=== PATIENT | female | born 1975 | race Two or more races ===

== ENCOUNTER → 2024-02-04 | Outpatient (CLI) | payer MEDICAID, SELFPAY ==
--- NOTE | 2024-02-04 08:30 | XR_ITS ---
Examination: Screening digital mammography, bilateral Computer aided detection 3-D breast Tomosynthesis, bilateral Date and time of exam: February 04, 2024 0841 hours Comparison May 21, 2020 February 05, 2022 Indication: Screening Technique: Nonmagnified MLO, CC views of the breasts to been obtained, reconstructed from 3-D Tomosynthesis images. R2 computer aided detection program utilized for evaluation of suspicious masses and/or abnormal calcifications. 3-D Tomosynthesis images obtained. Findings: The breasts are heterogeneously dense, which may obscure small masses 5 mm focal asymmetry nipple level left breast MLO view, 8 cm from the nipple, slightly inner left breast on the CC view Benign calcifications Impression: BI-RADS Category 0: Incomplete: Need additional imaging evaluation 5 mm nodule left breast as above, recommend follow-up spot tomographic views of this nodule as well as left breast sonography to complete the workup
== END | disposition home or self-care (01) ==
PROVIDERS: Referring Provider Obstetrics & Gynecology; Visit Provider Obstetrics & Gynecology
DX: Z12.31 Encounter for screening mammogram for malignant neoplasm of breast (principal); R92.8 Other abnormal and inconclusive findings on diagnostic imaging of breast; N63.20 Unspecified lump in the left breast, unspecified quadrant
CPT/HCPCS: 77063; 77067

== ENCOUNTER → 2024-03-28 | Outpatient (CLI) | payer MEDICAID, SELFPAY ==
--- NOTE | 2024-03-28 09:30 | XR_ITS ---
Examination: Breast ultrasound, unilateral, left Date and time of exam: March 28, 2024 1015 hours INDICATIONS: Mammogram February 04, 2024 5 mm focal asymmetry nipple level left breast MLO view, 8 cm from the nipple Technique: Real-time holcomb scale ultrasonographic imaging performed left breast including all 4 quadrants as well as nipple retroareolar and axillary region. Findings: No cystic or solid mass IMPRESSION: BI-RADS Category 1: Negative study
--- NOTE | 2024-03-28 10:00 | XR_ITS ---
Examination: Diagnostic digital mammography, unilateral, left Computer aided detection 3-D breast Tomosynthesis, unilateral Date and time of exam: March 28, 2024 1032 hours INDICATIONS: Mammogram February 04, 2024 5 mm nodule nipple level left breast MLO view Technique: Nonmagnified MLO, CC views of the left breast have been obtained, reconstructed from 3-D Tomosynthesis images. R2 computer aided detection program utilized for evaluation of suspicious masses and/or abnormal calcifications. 3-D Tomosynthesis images obtained. Findings: The breast is heterogeneously dense, which may obscure small masses Nodule left breast remains posterior depth nipple level MLO view spot compression examination Impression: BI-RADS category 3: Probably benign findings One additional 6 month left mammogram follow-up is needed to document stability of focal asymmetry nipple level left breast on the MLO view, posterior depth
== END | disposition home or self-care (01) ==
LOC: CDIM 09:46
PROVIDERS: PCP Family Medicine; Referring Provider Obstetrics & Gynecology; Visit Provider Obstetrics & Gynecology
DX: R92.332 Mammographic heterogeneous density, left breast (principal); N64.89 Other specified disorders of breast
CPT/HCPCS: 76641; 77061; 77065; G0279

== ENCOUNTER 2024-07-11 12:42 | Emergency (ER) | payer MEDICAID, SELFPAY ==
[2024-07-11 12:44] VITALS: BMI 28.6
[2024-07-11 12:57] VITALS: BP 117/74; PULSE 76; RESP 18; TEMP 36.9; O2SAT 98; BMI 29.5
--- NOTE | 2024-07-11 13:03 | XR_ITS ---
Examination: Pelvic ultrasound, transabdominal, complete Technique: Transabdominal ultrasound of the pelvis performed using grayscale imaging Date and time of exam: July 11, 2024 1358 hours INDICATIONS: Vaginal bleeding and pelvic pain beginning 5 days ago FINDINGS: Uterus 8.5 cm endometrial stripe 0.6 cm Right ovary 3.3 cm arterial flow Left ovary obscured by bowel gas IMPRESSION: No uterine mass or intrauterine gestation
--- NOTE | 2024-07-11 13:03 | EDRME_ITS ---
Rapid Medical Screening Exam REPLACED BY [facility] Arrival date/time: 07/11/24 12:42 48-year-old female with no known medical history presents to the emergency room with a chief complaint of vaginal bleeding x 2 days. Patient states she no longer has her menses and was told she was already in menopause. The patient has not had a menses in the last 4 years and began to have vaginal bleeding the last 2 days. I have greeted and performed a focused initial assessment of this patient. A comprehensive ED assessment and evaluation of the patient, analysis of all test results, and completion of the medical decision making process will be conducted by additional ED providers. Chief Complaint: Abdominal Pain Vital signs: Vital Signs Temperature 98.4 F 07/11/24 12:57 Pulse Rate 76 07/11/24 12:57 Respiratory Rate 18 07/11/24 12:57 Blood Pressure 117/74 07/11/24 12:57 Pulse Oximetry (%) 98 07/11/24 12:57 Oxygen Delivery Method Room Air 07/11/24 12:57 Vital signs reviewed by provider: Yes
[2024-07-11 13:45] LABS: Basophils # (Auto) 0.1 Thou/mm3 (0.0-0.2); Basophils % (Auto) 1 % (0-2.5); Eosinophils # (Auto) 0.1 Thou/mm3 (0.0-0.5); Eosinophils % (Auto) 1 % (0-10); Hematocrit 41.3 % (36.0-46.0); Hemoglobin 14.2 g/dL (12.0-16.0); Immature Granulocytes % (Auto) 0 % (0-0); Immature Granulocytes Auto 0.03 Thou/mm3 (0.00-0.00); Lymphocytes # (Auto) 2.3 Thou/mm3 (1.0-4.8); Lymphocytes % (Auto) 28 % (10-50); Mean Corpuscular HGB Conc 34.4 g/dl (31.0-37.0); Mean Corpuscular Hemoglobin 30.6 pg (25.0-35.0); Mean Corpuscular Volume 89 fL (80-100); Monocytes # (Auto) 0.8 Thou/mm3 (0.0-0.8); Monocytes % (Auto) 9 % (0-12); Neutrophils # (Auto) 4.9 Thou/mm3 (1.8-7.7); Neutrophils % (Auto) 61 % (37-80); Nucleated Red Blood Cell % 0 /100 WBC (0); Platelet Count 223 Thou/mm3 (140-440); RDW Standard Deviation 49.3 fL (36.4-46.3); Red Blood Count 4.64 Miln/mm3 (4.00-5.20)
[2024-07-11 13:59] LABS: Partial Thromboplastin Time 23.7 Seconds (22.0-36.0); Prothrombin Time 10.7 Seconds (9.0-12.2)
[2024-07-11 14:04] LABS: Alanine Aminotransferase 22 U/L (10-49); Albumin, Serum 4.5 gm/dL (3.5-5.0); Albumin/Globulin Ratio 1.7 (1.2-2.2); Alkaline Phosphatase 93 U/L (46-116); Anion Gap 10 (7-16); Aspartate Amino Transferase 14 U/L (0-34); BUN/Creatinine Ratio 12 Ratio (12-20); Bilirubin,Total 0.7 mg/dL (0.3-1.2); Blood Urea Nitrogen 11 mg/dL (9-23); Calcium 9.2 mg/dL (8.3-10.6); Calcium (Corrected) 9.2 mg/dL (8.5-10.1); Carbon Dioxide 25.2 mMol/L (20.0-31.0); Chloride 106 mMol/L (98-107); Creatinine (Component) 0.9 mg/dL (0.6-1.3); Estimated Creatinine Clearance 64.7 mL/min (>60); Globulin 2.7 gm/dL (2.3-3.5); Glucose 153 mg/dL (74-106); Osmolality,Calculated 283 (275-295); Potassium 3.4 mMol/L (3.4-5.1); Sodium 141 mMol/L (136-145); Total Protein 7.2 gm/dL (5.7-8.2); eGFR > 60 See Note
[2024-07-11 17:06] VITALS: BP 133/81; PULSE 72; RESP 16; TEMP 36.5; O2SAT 100
--- NOTE | 2024-07-11 20:18 | EDNOTE_ITS ---
ED OB Contraction Preg RMI/HPI General Chief complaint: Abdominal Pain Stated complaint: LOWER ABD PAIN X2WKS; PT CURRENT ON PERIOD Time Seen by Provider: 07/11/24 20:07 Source: patient, RN notes reviewed and old records reviewed Arrival date/time: 07/11/24 12:42 Mode of arrival: ambulatory Limitations: no limitations RME / HPI RME / HPI Narrative: 48yof presents to ED for 3-day history of vaginal bleeding and pelvic pain. Patient states last menstrual cycle was 2 years ago. Denies OCP or hormone therapy use. No fever, nausea/vomiting, dysuria or vaginal discharge reported. Patient is taken ibuprofen intermittently with some relief. Related Data Previous Rx's ?Medication ?Instructions ?Recorded hydrocodone 5 mg-acetaminophen 325 1 tab PO BID PRN pa in #10 tabs 02/19/22 mg tablet ibuprofen 600 mg tablet 600 mg PO Q6H #30 tabs 02/19 acetaminophen 500 mg capsule 1,000 mg (2 x 500 mg) PO TID #30 08/19/22 caps acetaminophen 500 mg tablet 1,000 mg (2 x 500 mg) PO Q 6H PRN 07/11/24 (Tylenol Extra Strength) pain #30 tabs ibuprofen 600 mg tablet 600 mg PO Q6H PRN pain #20 t abs 07/11/24 methocarbamol 500 mg tablet 500 mg PO Q8H PRN pain #20 tabs 07/11/24 Allergies Allergy/AdvReac Type Severity Reaction Status Date / Time No Known Allergies Allergy Verified 07/11/24 12:47 Review of Systems Review of Systems Systems Reviewed: All systems reviewed, normal except as documented Constitutional Constitutional: Denies chills and Denies fever(s) Gastrointestinal Gastrointestinal: Denies nausea and Denies vomiting Genitourinary Genitourinary: Reports abnormal vaginal bleeding, Denies dysuria, Reports pelvic pain and Denies vaginal discharge Past Medical History Surgical History OTHER SURGICAL HX: Denies past surgical history Social History SMOKING STATUS: Never smoker SUBSTANCE USE: does not use ALCOHOL: Never Past Medical History Comments PMH COMMENT: Denies past medical history ED Exam General Limitations: Present no limitations General appearance: Present alert and in no apparent distress Head Head exam: Present atraumatic and normocephalic Eye Eye exam: Present normal appearance, PERRL and EOMI ENT ENT exam: Present normal exam and mucous membranes moist Neck Neck exam: Present normal inspection and full ROM Chest Chest inspection: Present normal inspection and symmetric chest wall rise Respiratory Respiratory exam: Present normal lung sounds bilaterally; Absent respiratory distress Cardiovascular Cardiovascular exam: Present regular rate and normal rhythm Abdominal Exam Abdominal exam: Present soft; Absent distention, tenderness, guarding or rebound Extremities Exam Extremities exam: Present normal inspection and full ROM Back Exam Back exam: Absent CVA tenderness (R) or CVA tenderness (L) Neurological Exam Neurological exam: Present alert and oriented X3 Psychiatric Psychiatric exam: Present normal affect and normal mood Skin Skin exam: Present warm, dry, intact and normal color Course Quality Measures none Orders Category Date Time Status US pelvic complete Stat Exams 07/11/24 13:03 Completed CBC Stat Lab 07/11/24 13:22 Completed CMP [Comprehensive Metabolic Panel] Stat Lab 07/11/24 13:22 Completed HCG Qualitative,Urine Stat Lab 07/11/24 20:40 Completed PT [Prothrombin Time with INR] Stat Lab 07/11/24 13:22 Completed PTT [Partial Thromboplastin Time] Stat Lab 07/11/24 13:22 Completed Type and Screen Stat Lab 07/11/24 13:22 Completed UA [Urinalysis] Stat Lab 07/11/24 20:40 Completed Vital Signs Vital signs: Vital Signs Temperature 98.4 F 07/11/24 12:57 Pulse Rate 76 07/11/24 12:57 Respiratory Rate 18 07/11/24 12:57 Blood Pressure 117/74 07/11/24 12:57 Pulse Oximetry (%) 98 07/11/24 12:57 Oxygen Delivery Method Room Air 07/11/24 12:57 Vaginal Bleeding MDM Narrative MDM Narrative: 48yof presents to ED for 3-day history of vaginal bleeding and pelvic pain. Patient states last menstrual cycle was 2 years ago. Denies OCP or hormone therapy use. No fever, nausea/vomiting, dysuria or vaginal discharge reported. Patient is taken ibuprofen intermittently with some relief. Patient updated on labs, imaging. She is hemodynamically stable. Nonsurgical abdomen on exam. Recommended close follow-up with gynecology. Stable for discharge, RTED precautions given. Patient data External records reviewed:: [facility] previous records (11/03/2023 ED visit for abdo wendy pain) Clinical information provided by:: patient Social determinants that could affect healthcare access:: other (specify) (Poor access to healthcare, acculturation difficulty) Patient has the following chronic illnesses:: None How is presenting disease/condition affected by chronic disease/condition?: no chronic disease Evaluation data The following diagnostics were reviewed and interpreted by me:: lab results and radiology exam(s) Lab and/or radiology exams considered but not ordered:: None Interpretation Summary: UA +blood, -leuks, nitrites. Minimal wbcs, suspect contaminant No anemia No leukocytosis Negative upreg Pelvis US: no acute process per my read Medications / Prescriptions Medications or Prescriptions considered but not ordered:: No antibiotics recommended at this time Medication administrations:: None Consultations Consultation(s) initiated? (list below): No Diagnosis Vaginal Bleeding Differential Diagnosis: other (Abnormal vaginal bleeding, dysmenorrhea, , ectopic , UTI, ovarian cyst, fibroid) Most likely diagnosis given after review of the tests above:: Abnormal vaginal bleeding Admission Indicated Admission indicated?: not indicated Admission Request Was there a request for admission?: No Disposition Plan Disposition Plan: Discharge Discharge Attestation Discharge Attestation: The patient and all family members were given an opportunity to ask questions and understood the discharge instructions. Discharge instructions specifically effects, indications for sooner follow up or return to the emergency department, and the expected course of current diagnosis. Patient condition: Stable Discharge Plan Plan Patient Disposition: HOME (Self Care) Patient condition on transfer: Stable Prescriptions/Referrals Prescriptions/Med Rec: New ibuprofen 600 mg tablet 600 mg PO Q6H PRN (Reason: pain) Qty: 20 0RF methocarbamol 500 mg tablet 500 mg PO Q8H PRN (Reason: pain) Qty: 20 0RF acetaminophen [Tylenol Extra Strength] 500 mg tablet 1,000 mg PO Q6H PRN (Reason: pain) Qty: 30 0RF No Action hydrocodone-acetaminophen 5-325 mg tablet 1 tab PO BID MDD 10 PRN (Reason: pain) Qty: 10 0RF ibuprofen 600 mg tablet 600 mg PO Q6H Qty: 30 0RF acetaminophen 500 mg capsule 1,000 mg PO TID Qty: 30 0RF Referrals: Sudhir Lujan MD [Primary Care Provider] - In 1 week Breezy Aviles MD [Physician] - (Call to schedule an appointment for a visit) Problem List Clinical Impression: Abnormal vaginal bleeding Patient/Caregiver Discharge Instructions Education Materials: ED Dysfunctional Uterine Bleeding Print Language: Faroese Stand Alone Forms: Cookie Award Info., Work/School Release, Patient Portal Info Letter PA/MORTGAGE COUNSELOR Supervising Physician PA/MORTGAGE COUNSELOR Supervising Physician: Brian
[2024-07-11 20:52] LABS: Collection Type, Urine Clean Catch
[2024-07-11 20:55] LABS: Bilirubin,Urine Negative (Negative); Blood,Urine 2+ (Negative); Clarity,Urine Clear (Clear/Hazy); Color,Urine Lt-Yellow (Lt Yel-Yel); Glucose, Urine Negative (Negative); Ketones,Urine Negative (Negative); Leukocyte Esterase,Urine Negative (Negative); Nitrite,Urine Negative (Negative); PH,Urine 5.5 (5.0-7.0); Protein,Urine Negative (Neg - Trace); RBC,Urine 135 /hpf (0-3); Specific Gravity,Urine 1.027 (1.001-1.035); Squamous Epithelial Cell,Urine 1 /hpf (0-5); Urobilinogen,Urine Negative mg/dL (0.0-1.0); WBC,Urine 32 /hpf (0-5)
[2024-07-11 21:07] LABS: HCG Qualitative,Urine Negative
[2024-07-11 21:11] VITALS: RESP 18
== END 2024-07-11 21:12 | disposition home or self-care (01) ==
PROVIDERS: Nurse Practitioner Family; Physician Assistant; Emergency Provider Emergency Medicine; PCP Family Medicine
DX: N93.9 Abnormal uterine and vaginal bleeding, unspecified (principal); R10.2 Pelvic and perineal pain
CPT/HCPCS: 36415; 76856; 80053; 81001; 81025; 85025; 85610; 85730; 86850; 86900; 86901; 99284

== ENCOUNTER → 2024-08-10 | Outpatient (CLI) | payer MEDICAID, SELFPAY ==
--- NOTE | 2024-08-10 13:00 | XR_ITS ---
Examination: Breast ultrasound, unilateral, left completely Date and time of exam: August 10, 2024 1342 hours INDICATIONS: Left breast pain beginning 2 years ago Technique: Real-time holcomb scale ultrasonographic imaging performed left breast including all 4 quadrants as well as nipple retroareolar and axillary region. Findings: No cystic or solid mass IMPRESSION: BI-RADS Category 2: Benign findings
--- NOTE | 2024-08-10 13:30 | XR_ITS ---
Examination: Diagnostic digital mammography, unilateral, left Computer aided detection 3-D breast Tomosynthesis, unilateral Date and time of exam: August 10, 2024 1352 hours INDICATIONS: Mammogram February 04, 2024 5 mm nodule nipple level left breast on the MLO view Technique: Nonmagnified MLO, CC views of the left breast have been obtained, reconstructed from 3-D Tomosynthesis images. R2 computer aided detection program utilized for evaluation of suspicious masses and/or abnormal calcifications. 3-D Tomosynthesis images obtained. Findings: The breast is heterogeneously dense, which may obscure small masses 6 mm nodule 12:00 position left breast Impression: BI-RADS category 3: Probably benign findings Recommend 6 month bilateral mammography follow-up
== END | disposition home or self-care (01) ==
LOC: CDIM 13:26
PROVIDERS: PCP Nurse Practitioner Women's Health; Referring Provider Nurse Practitioner Women's Health; Visit Provider Nurse Practitioner Women's Health
DX: R92.332 Mammographic heterogeneous density, left breast (principal)
CPT/HCPCS: 76641; 77061; 77065; G0279

== ENCOUNTER → 2024-12-22 | Outpatient (CLI) | payer MEDICAID, SELFPAY ==
--- NOTE | 2024-12-22 09:07 | XR_ITS ---
Examination: Shoulder, right, 3 views Technique: Shoulder AP internal rotation, AP external rotation, Y view shoulder, 3 views Exam date and time : December 22, 2024, 0915 hours INDICATIONS: Right shoulder pain beginning 3 months ago. FINDINGS: Moderate osteopenia. Mild narrowing glenohumeral joint. No shoulder fracture or dislocation IMPRESSION: Mild narrowing glenohumeral joint
== END | disposition home or self-care (01) ==
LOC: CDIM 08:44
PROVIDERS: PCP Physician Assistant; Referring Provider Physician Assistant; Visit Provider Physician Assistant
DX: M25.811 Other specified joint disorders, right shoulder (principal)
CPT/HCPCS: 73030